=== PATIENT | female | born 2000 | race African-American/Black ===

== ENCOUNTER 2023-03-11 08:11 | Emergency (ER) | payer SELFPAY ==
[~2023-03-11 08:11] MED LIST: TOPUD PO
== END 2023-03-11 08:29 | disposition home or self-care (01) ==
LOC: ER 08:11
DX: Z00.00 Encounter for general adult medical examination without abnormal findings (principal)
CPT/HCPCS: 99281

== ENCOUNTER 2023-03-13 09:34 | Emergency (ER) | payer SELFPAY ==
[~2023-03-13] VITALS: Ht 167.6 cm; Wt 82.0 kg
[2023-03-13 10:00] VITALS: O2SAT 99
[2023-03-13 13:55] VITALS: BP 119/62; PULSE 81; RESP 16; TEMP 98.6
== END 2023-03-13 13:56 | disposition home or self-care (01) ==
LOC: ER 09:47
DX: M79.645 Pain in left finger(s) (principal)
CPT/HCPCS: 29130; 73130; 81025; 99283